=== PATIENT | female | born 1965 | race Caucasian/White ===

== ENCOUNTER 2017-05-28 19:18 | Emergency (ER) | payer SELFPAY ==
[2017-05-28 18:38] VITALS: BP 126/80; PULSE 88; RESP 16; TEMP 36.7; O2SAT 98; BMI 31.3
--- NOTE | 2017-05-28 18:49 | XR_ITS ---
XR chest 2V HISTORY: ITS.REASON: WEAKNESS AND COUGH ORDERING PHYSICIAN: Caterina Menezes MD PATIENT AGE: 51 years COMPARISON: None available FINDINGS: The cardiomediastinal silhouette and pulmonary vascularity are within normal limits. The lungs are clear without infiltrates, suspicious nodules, or pleural effusions. No acute bony abnormalities. IMPRESSION: Negative chest, no acute finding
[2017-05-28 19:03] LABS: Basophils % 0.2 % (0.1-2.0); Eosinophils # 0.1 K/mm3 (0.0-0.4); Eosinophils % 0.4 % (0.1-12.0); Hematocrit 45.6 % (37.0-47.0); Lymphocytes # 0.7 K/mm3 (0.7-4.5); Lymphocytes % 4.4 K/mm3 (10-50); Mean Corpuscular Hemoglobin 31.2 pg (27.0-31.2); Mean Corpuscular Volume 94.5 fl (81-99); Mean Platelet Volume 7.8 fl (7.4-10.4); Monocytes # 0.5 K/mm3 (0.1-1.0); Monocytes % 3.2 % (1.7-9.3); Neutrophils # 15.6 K/mm3 (1.8-7.8); Neutrophils % 91.9 % (37.0-80.0); Platelet Count 306 K/mm3 (142-424); Red Blood Count 4.82 M/mm3 (4.20-5.40); Red Cell Distribution Width 12.8 % (11.5-17.5); White Blood Count 16.9 K/mm3 (4.8-10.8)
[2017-05-28 19:05] LABS: MANUAL DIFFERENTIAL MANUAL DIFFERENTIAL (MANUAL DIFF)
[2017-05-28 19:11] LABS: Alanine Aminotransferase 42 U/L (12-78); Albumin Level 4.7 gm/dL (3.4-5.0); Albumin/Globulin Ratio 1.3 (1.1-1.8); Alkaline Phosphatase 152 U/L (46-116); Anion Gap 18.5 mEq/L (5-15); Aspartate Amino Transferase 26 U/L (15-37); Bilirubin,Total 1.8 mg/dL (0.2-1.0); Blood Urea Nitrogen 19 mg/dL (7-18); Calcium 9.4 mg/dL (8.5-10.1); Carbon Dioxide 20 mmol/L (21.0-32.0); Chloride 105 mmol/L (98-107); Creatinine Clearance Estimated 114 mL/min (0-300); Creatinine,Serum 0.83 mg/dL (0.55-1.02); Estimated Glomerular Filt Rate 72 ml/min (>60); GFR (African American) 87 ML/MIN (>60); Globulin 3.6 gm/dl (1.3-3.2); Glucose 166 mg/dL (74-106); Potassium 4.5 mmoL/L (3.5-5.1); Sodium 139 mmol/L (136-145); Total Protein,Serum 8.3 gm/dL (6.4-8.2)
[2017-05-28 19:29] LABS: Lymphocytes % 4 % (10-50); Monocytes % 7 % (2-9); Neutrophils % 85 % (42-76); Platelet Estimate Normal; RBC Morphology Normal; Total Cells Counted 100
[2017-05-28 19:38] VITALS: BP 129/88
--- NOTE | 2017-05-28 20:10 | HMH.EDNVD ---
ED Disposition Clinical Impression: Flu Disposition: Home, Self-Care Condition on Discharge: Good Instructions: Nausea and Vomiting-Adult Additional Instructions: fluids and see pcp for follow up Prescriptions: Benzonatate [Tessalon Perle 100mg Cap] 100 mg PO TID #30 cap - Critical Care Critical Care Time: No Attestation: On 05/28/17, the high probability of a clinically significant, sudden or life threatening deterioration of the following system(s) required my full and direct attention, intervention and personal management. The time I documented below is in addition to time spent performing reported procedures but includes the following listed in this critical care notation. Medical Decision Making - Medical Records Medical records reviewed: Yes: I reviewed the patient's medical records. Vital Signs: 05/28/17 18:38 05/28/17 19:38 05/28/17 22:52 Temperature 98.1 F 98.4 F Temperature Source Oral Oral Pulse Rate [Right Brachial] 88 79 Respiratory Rate 16 18 Blood Pressure [Right Arm] 126/80 129/88 130/49 Blood Pressure Mean [Right Arm] 95 101 76 Blood Pressure Source [Right Arm] Automatic Cuff Automatic Cuff Automatic Cuff Blood Pressure Position [Right Arm] Supine Sitting Supine 02 Sat by Pulse Oximetry 98 96 Oxygen Delivery Method Room Air Room Air - Lab Data Lab results reviewed: Yes: I reviewed the patient's lab results. Lab Results 05/28/17 18:50: WBC 16.9 H, RBC 4.82, Hgb 15.0, Hct 45.6, MCV 94.5, MCH 31.2, MCHC 33.0, RDW 12.8, Plt Count 306, MPV 7.8, Neut % (Auto) 91.9 H, Lymph % (Auto) 4.4 L, [place] % (Auto) 3.2, Eos % (Auto) 0.4, Baso % (Auto) 0.2, Neut # (Auto) 15.6 H, Lymph # (Auto) 0.7, [place] # (Auto) 0.5, Eos # (Auto) 0.1, Baso # (Auto) 0.0, Total Counted 100, Neutrophils % (Manual) 85 H, Band Neutrophils % 3.0, Lymphocytes % (Manual) 4 L, Monocytes % (Manual) 7, Metamyelocytes % 1.0, Platelet Estimate Normal, RBC Morphology Normal 05/28/17 18:50: Sodium 139, Potassium 4.5, Chloride 105, Carbon Dioxide 20 L, Anion Gap 18.5 H, BUN 19 H, Creatinine 0.83, Estimated Creat Clear 114, Estimated GFR 72, Est GFR ( Amer) 87, Glucose 166 H, Calcium 9.4, Total Bilirubin 1.8 H, AST 26, ALT 42, Alkaline Phosphatase 152 H, Total Protein 8.3 H, Albumin 4.7, Globulin 3.6 H, Albumin/Globulin Ratio 1.3 05/28/17 18:50: Amylase 44, Lipase 85 05/28/17 22:30: Urine Color Yellow, Urine Appearance Clear, Urine pH 6.0, Ur Specific [place] >= 1.030, Urine Protein Negative, Urine Glucose (UA) Negative, Urine Ketones Negative, Urine Blood 1+, Urine Nitrate Negative, Urine Bilirubin Negative, Urine Urobilinogen 0.2, Ur Leukocyte Esterase Negative, Urine RBC 3-5, Urine WBC Occasional, Ur Squamous Epith Cells 3-5, Urine Bacteria 1+, Urine Mucus 2+ Result diagrams: 05/28/17 18:50 05/28/17 18:50 Orders (Tests/Meds): ED MEDICATIONS Discontinued Medications Generic Name Dose Route Start Last Admin Trade Name Freq PRN Reason Stop Dose Admin Famotidine 20 mg 05/28/17 20:24 05/28/17 20:38 Pepcid 20mg/2ml Vial IV 05/28/17 20:25 20 mg ONCE ONE Administration Sodium Chloride 1,000 mls @ 999 mls/hr 05/28/17 19:00 05/28/17 18:59 Sod Chloride 0.9% 1000ml Bag IV 05/28/17 20:00 999 mls/hr .Q1H1M SHANTHI Administration Sodium Chloride 1,000 mls @ 999 mls/hr 05/28/17 20:30 05/28/17 20:24 Sod Chloride 0.9% 1000ml Bag IV 05/28/17 21:30 999 mls/hr .Q1H1M SHANTHI Administration Ketorolac Tromethamine 30 mg 05/28/17 22:12 05/28/17 22:18 Toradol 30mg/Ml Vial IV 05/28/17 22:13 30 mg ONCE ONE Administration Loperamide HCl 4 mg 05/28/17 18:50 05/28/17 18:58 Imodium 2 Mg Capsule PO 05/28/17 18:51 4 mg ONCE ONE Administration Ondansetron HCl 4 mg 05/28/17 20:24 05/28/17 20:38 Zofran 4mg/2ml Vial IV 05/28/17 20:25 4 mg ONCE ONE Administration - Paul Inquiry Pt receiving controlled substance: No Nausea/Vomiting/Diarrhea HPI - General Chief complaint: N
--- NOTE | 2017-05-28 20:15 | ED_ITS ---
ED Disposition Clinical Impression: Flu Disposition: Home, Self-Care Condition on Discharge: Good Instructions: Nausea and Vomiting-Adult Additional Instructions: fluids and see pcp for follow up Prescriptions: Benzonatate [Tessalon Perle 100mg Cap] 100 mg PO TID #30 cap - Critical Care Critical Care Time: No Attestation: On 05/28/17, the high probability of a clinically significant, sudden or life threatening deterioration of the following system(s) required my full and direct attention, intervention and personal management. The time I documented below is in addition to time spent performing reported procedures but includes the following listed in this critical care notation. Medical Decision Making - Medical Records Medical records reviewed: Yes: I reviewed the patient's medical records. Vital Signs: 05/28/17 18:38 05/28/17 19:38 05/28/17 22:52 Temperature 98.1 F 98.4 F Temperature Source Oral Oral Pulse Rate [Right Brachial] 88 79 Respiratory Rate 16 18 Blood Pressure [Right Arm] 126/80 129/88 130/49 Blood Pressure Mean [Right Arm] 95 101 76 Blood Pressure Source [Right Arm] Automatic Cuff Automatic Cuff Automatic Cuff Blood Pressure Position [Right Arm] Supine Sitting Supine 02 Sat by Pulse Oximetry 98 96 Oxygen Delivery Method Room Air Room Air - Lab Data Lab results reviewed: Yes: I reviewed the patient's lab results. Lab Results 05/28/17 18:50: WBC 16.9 H, RBC 4.82, Hgb 15.0, Hct 45.6, MCV 94.5, MCH 31.2, MCHC 33.0, RDW 12.8, Plt Count 306, MPV 7.8, Neut % (Auto) 91.9 H, Lymph % (Auto ) 4.4 L, [place] % (Auto) 3.2, Eos % (Auto) 0.4, Baso % (Auto) 0.2, Neut # (Auto) 15.6 H, Lymph # (Auto) 0.7, [place] # (Auto) 0.5, Eos # (Auto) 0.1, Baso # (Auto) 0.0, Total Counted 100, Neutrophils % (Manual) 85 H, Band Neutrophils % 3.0, Lymphocytes % (Manual) 4 L, Monocytes % (Manual) 7, Metamyelocytes % 1.0, Platelet Estimate Normal, RBC Morphology Normal 05/28/17 18:50: Sodium 139, Potassium 4.5, Chloride 105, Carbon Dioxide 20 L, Anion Gap 18.5 H, BUN 19 H, Creatinine 0.83, Estimated Creat Clear 114, Estimated GFR 72, Est GFR ( Amer) 87, Glucose 166 H, Calcium 9.4, Total Bilirubin 1.8 H, AST 26, ALT 42, Alkaline Phosphatase 152 H, Total Protein 8.3 H , Albumin 4.7, Globulin 3.6 H, Albumin/Globulin Ratio 1.3 05/28/17 18:50: Amylase 44, Lipase 85 05/28/17 22:30: Urine Color Yellow, Urine Appearance Clear, Urine pH 6.0, Ur Specific [place] >= 1.030, Urine Protein Negative, Urine Glucose (UA) Negative, Urine Ketones Negative, Urine Blood 1+, Urine Nitrate Negative, Urine Bilirubin Negative, Urine Urobilinogen 0.2, Ur Leukocyte Esterase Negative, Urine RBC 3-5 , Urine WBC Occasional, Ur Squamous Epith Cells 3-5, Urine Bacteria 1+, Urine Mucus 2+ Result diagrams: 05/28/17 18:50 05/28/17 18:50 Orders (Tests/Meds): ED MEDICATIONS Discontinued Medications Generic Name Dose Route Start Last Admin Trade Name Freq PRN Reason Stop Dose Admin Famotidine 20 mg 05/28/17 20:24 05/28/17 20:38 Pepcid 20mg/2ml Vial IV 05/28/17 20:25 20 mg ONCE ONE Administration Sodium Chloride 1,000 mls @ 999 mls/hr 05/28/17 19:00 05/28/17 18:59 Sod Chloride 0.9% 1000ml Bag IV 05/28/17 20:00 999 mls/hr .Q1H1M SHANTHI Administration Sodium Chloride 1,000 mls @ 999 mls/hr 05/28/17 20:30 05/28/17 20:24 Sod Chloride 0.9% 1000ml Bag IV 05/28/17 21:30 999 mls/hr .Q1H1M SHANTHI
[2017-05-28 21:57] LABS: Lipase 85 u/L (73-393)
[2017-05-28 22:01] LABS: Amylase 44 U/L (25-125)
[2017-05-28 22:36] LABS: Microscopic, Urine URINE MICROSCOPIC (MICROSCOPIC)
[2017-05-28 22:37] LABS: Appearance,Urine CLEAR (Clear); Bilirubin,Urine Negative (Negative); Blood, Urine 1+ (Negative); Color,Urine YELLOW (Yellow); Glucose,Urine (UA) Negative (Negative); Ketones,Urine Negative (Negative); Leukocyte Esterase,Urine Negative (Negative); Nitrate,Urine Negative (Negative); Protein,Urine Negative (Negative); Specific Gravity, Urine >= 1.030 (1.005-1.030); Urobilinogen,Urine 0.2 EU/dl (0.2)
[2017-05-28 22:52] VITALS: BP 130/49; PULSE 79; RESP 18; TEMP 36.9; O2SAT 96
[2017-05-28 23:02] LABS: Bacteria,Urine 1+ /lpf; Mucus,Urine 2+ /lpf; WBC,Urine Occasional #/hpf (0-3)
== END 2017-05-28 23:44 | disposition home or self-care (01) ==
PROVIDERS: Emergency Medicine; Emergency Provider Emergency Medicine
DX: J10.1 Influenza due to other identified influenza virus with other respiratory manifestations (principal); F17.210 Nicotine dependence, cigarettes, uncomplicated
CPT/HCPCS: 71046; 80053; 81001; 82150; 83690; 85007; 85025; 96365; 96366; 96375; 99284; J2405

== ENCOUNTER → 2018-12-07 14:13 | Outpatient (CLI) | payer BC, SELFPAY ==
--- NOTE | 2018-12-07 14:16 | XR_ITS ---
XR knee RT 3V HISTORY: Pain following injury ITS.REASON: RT KNEE INJURY ORDERING PHYSICIAN: Susan Trujillo APRN PATIENT AGE: 53 years COMPARISON: None FINDINGS: Normal alignment. There is a faint density just superior to the medial tibial spine which could be due to a loose body or an avulsion fracture. This measures approximately 3 mm. No other significant anomalies. IMPRESSION: Small avulsion injury versus loose body along the medial tibial spine otherwise negative
== END ==
PROVIDERS: PCP Nurse Practitioner Family; Visit Provider Nurse Practitioner Family
DX: S89.91XA Unspecified injury of right lower leg, initial encounter (principal)
CPT/HCPCS: 73562

== ENCOUNTER → 2019-04-13 11:13 | Outpatient (CLI) | payer BC, SELFPAY ==
--- NOTE | 2019-04-13 11:19 | CA_ITS ---
APPROVED REPORT Right Lower Extremity Venous Study for DVT. Utilities Manager: BLADIMIR Indications Lower Extremity Pain: DVT of Lower Extremity: Right knee pain Risk Factors Obesity Past History DVT : Findings No evidence of DVT or superficial thrombophlebitis in the veins scanned of the right lower extremity. Susan Trujillo office called report Conclusion No evidence of DVT or superficial thrombophlebitis in the veins scanned of the right lower extremity. Electronically signed by : Derrek Sullivan MD 04/16/2019 16:58:09
[2019-04-13 12:32] LABS: Basophils % 0.6 % (0.1-2.0); Eosinophils # 0.1 K/mm3 (0.0-0.4); Eosinophils % 1.6 % (0.1-12.0); Hematocrit 40.7 % (37.0-47.0); Hemoglobin 13.4 g/dL (12.2-16.2); Lymphocytes # 2.6 K/mm3 (0.7-4.5); Lymphocytes % 38.3 % (10-50); Mean Corpuscular HGB Conc 33.1 g/dL (31.8-35.4); Mean Corpuscular Hemoglobin 30.7 pg (27.0-31.2); Mean Corpuscular Volume 92.8 fl (81-99); Mean Platelet Volume 7.8 fl (7.4-10.4); Monocytes # 0.5 K/mm3 (0.1-1.0); Monocytes % 7.2 % (1.7-9.3); Neutrophils # 3.6 K/mm3 (1.8-7.8); Neutrophils % 52.3 % (37.0-80.0); Platelet Count 351 K/mm3 (142-424); Red Blood Count 4.38 M/mm3 (4.20-5.40); White Blood Count 6.8 K/mm3 (4.8-10.8)
[2019-04-13 16:17] LABS: Alanine Aminotransferase 33 U/L (12-78); Albumin/Globulin Ratio 1.3 (1.1-1.8); Alkaline Phosphatase 159 U/L (46-116); Anion Gap 17.4 mEq/L (5-15); Aspartate Amino Transferase 22 U/L (15-37); Bilirubin,Total 1.1 mg/dL (0.2-1.0); Blood Urea Nitrogen 11 mg/dL (7-18); Calcium 9.3 mg/dL (8.5-10.1); Carbon Dioxide 25 mmol/L (21.0-32.0); Chloride 103 mmol/L (98-107); Chol/HDL Ratio 6.3 (1-3.5); Cholesterol 263 mg/dL (140-200); Estimated Glomerular Filt Rate 87 ml/min (>60); Free T4 (Free Thyroxine) 0.54 ng/dl (0.76-1.46); GFR (African American) 106 ML/MIN (>60); Globulin 3.2 gm/dl (1.3-3.2); Glucose 91 mg/dL (74-106); HDL Cholesterol 42 mg/dL (29-89); LDL Cholesterol 187 mg/dL (0-130); Potassium 4.4 mmoL/L (3.5-5.1); Sodium 141 mmol/L (136-145); Thyroid Stimulating Hormone 2.94 uIU/ml (0.358-3.740); Total Protein,Serum 7.2 gm/dL (6.4-8.2); Triglycerides 169 mg/dL (30-200); VLDL Cholesterol 34 mg/dL (0-40)
[2019-04-14 13:19] LABS: Vitamin B12 >2000 pg/mL (232-1245)
== END ==
PROVIDERS: PCP Nurse Practitioner Family; Visit Provider Nurse Practitioner Family
DX: M25.561 Pain in right knee (principal); Z98.890 Other specified postprocedural states; E78.3 Hyperchylomicronemia; M79.89 Other specified soft tissue disorders; E53.8 Deficiency of other specified B group vitamins; E03.9 Hypothyroidism, unspecified
CPT/HCPCS: 36415; 80053; 80061; 82607; 84439; 84443; 85025; 93971

== ENCOUNTER → 2019-04-23 06:43 | Outpatient (CLI) | payer BC, SELFPAY ==
--- NOTE | 2019-04-23 08:00 | US_ITS ---
PROCEDURE: US LIVER CLINICAL INDICATION: ELEVATED LIVER ENZYMES COMPARISON: No exams were available for comparison FINDINGS: The echogenicity of the liver is only mildly increased without enlargement in there is no focal liver lesion. Common bile duct is normal measuring 5.2 millimeters. There is normal directional flow in the portal vein. Right kidney appears normal. There is no ascites. Visualized portions of the IVC and pancreas appear normal. Gallbladder is not visualized. IMPRESSION: Possible mild hepatic steatosis. Dictated by: Luciano Chauhan 04/23/2019 09:35 Electronically signed by Luciano Chauhan in [place] 04/23/2019 09:35
== END ==
PROVIDERS: PCP Nurse Practitioner Family; Visit Provider Nurse Practitioner Family
DX: R74.8 Abnormal levels of other serum enzymes (principal)
CPT/HCPCS: 76705

== ENCOUNTER → 2019-11-16 07:19 | Outpatient (CLI) | payer BC, MEDICAID, SELFPAY ==
--- NOTE | 2019-11-16 07:24 | US_ITS ---
PROCEDURE: US ABDOMEN LIMITED CLINICAL INDICATION: N/V,ALTERED BOWEL FUNCTION,ABN LIVER FUNCTION STUDY COMPARISON: No exams were available for comparison FINDINGS: PANCREAS: Unremarkable. No obvious mass or abnormal fluid collection. No ductal dilatation LIVER: No focal liver lesions demonstrated. Homogeneous echogenicity. No intrahepatic biliary ductal dilatation evident. There is appropriate direction of blood flow within a non dilated portal vein. Are some areas of slight increased echogenicity of the liver suggesting hepatic steatosis. RIGHT KIDNEY: Unremarkable. Normal size and echogenicity. No hydronephrosis GALLBLADDER: Prior cholecystectomy. Common bile duct is normal at 3 mm. IMPRESSION: Prior cholecystectomy with suspected mild hepatic steatosis Dictated by: Derrek Sullivan MD 11/16/2019 11:08 Electronically signed by eDrrek Sullivan MD in [place] 11/16/2019 11:08
[2019-11-16 09:38] LABS: Basophils # 0.1 K/mm3 (0-0.2); Basophils % 0.6 % (0.1-2.0); Eosinophils # 0.2 K/mm3 (0.0-0.4); Eosinophils % 2.1 % (0.1-12.0); Hematocrit 44.4 % (37.0-47.0); Hemoglobin 15.2 g/dL (12.2-16.2); Lymphocytes # 3.4 K/mm3 (0.7-4.5); Mean Corpuscular HGB Conc 34.2 g/dL (31.8-35.4); Mean Corpuscular Hemoglobin 32.9 pg (27.0-31.2); Mean Corpuscular Volume 96.3 fl (81-99); Mean Platelet Volume 7.4 fl (7.4-10.4); Monocytes # 0.6 K/mm3 (0.1-1.0); Monocytes % 6.2 % (1.7-9.3); Neutrophils # 5.2 K/mm3 (1.8-7.8); Neutrophils % 55.1 % (37.0-80.0); Platelet Count 339 K/mm3 (142-424); Red Blood Count 4.61 M/mm3 (4.20-5.40); Red Cell Distribution Width 13.1 % (11.5-17.5); White Blood Count 9.5 K/mm3 (4.8-10.8)
[2019-11-16 09:54] LABS: INR 0.97 (0.9-1.1)
[2019-11-16 10:30] LABS: Alanine Aminotransferase 22 U/L (12-78); Albumin Level 4.6 g/dl (3.5-5.0); Albumin/Globulin Ratio 1.8 (1.1-1.8); Alkaline Phosphatase 139 U/L (38-126); Anion Gap 12.5 mEq/L (5-15); Aspartate Amino Transferase 29 U/L (14-36); Bilirubin,Total 1.5 mg/dl (0.2-1.3); Blood Urea Nitrogen 12 mg/dl (7-17); Carbon Dioxide 32 mmol/L (22.0-30.0); Chloride 102 mmol/L (98-107); Estimated Glomerular Filt Rate 104 ml/min (>60); GFR (African American) 126 ML/MIN (>60); Globulin 2.6 g/dL (1.3-3.2); Glucose 91 mg/dl (74-100); Iron 136 ug/dL (37-170); Potassium 5.5 mmoL/L (3.5-5.1); Sodium 141 mmol/L (136-145); Total Protein,Serum 7.2 g/dl (6.3-8.2)
[2019-11-16 11:00] LABS: Total Iron Binding Capacity 430 ug/dL (265-497)
[2019-11-16 11:24] LABS: Ferritin 8.74 ng/ml (11.1-264)
[2019-11-17 11:29] LABS: Hep A Ab, IgM Negative (Negative); Hepatitis B Core Antibody IgM Negative (Negative); Hepatitis B Surface Antigen Negative (Negative)
[2019-11-17 13:32] LABS: Hepatitis C Antibody <0.1 s/co ratio (0.0-0.9)
[2019-11-18 06:11] LABS: ALT (SGPT) P5P 21 IU/L (0-40); AST (SGOT) P5P 25 IU/L (0-40); Alpha 2-Macroglobulins, Qn 166 mg/dL (110-276); Apolipoprotein A-1 142 mg/dL (116-209); Bilirubin, Total 1.2 mg/dL (0.0-1.2); Cholesterol, Total 189 mg/dL (100-199); Fibrosis Score 0.21 (0.00-0.21); GGT 11 IU/L (0-60); Glucose 87 mg/dL (65-99); Haptoglobin 95 mg/dL (33-346); Triglycerides 232 mg/dL (0-149)
[2019-11-18 09:39] LABS: Actin (Smooth Muscle) Antibody 4 Units (0-19); Angiotensin Converting Enzyme 41 U/L (14-82); Deamidated Gliadin Abs, IgA 2 units (0-19); Deamidated Gliadin Abs, IgG 2 units (0-19); Endomysial IgA Antibody Negative (Negative); Liver-Kidney Microsomal Ab 1.2 Units (0.0-20.0); Mitochondrial (M2) Antibody <20.0 Units (0.0-20.0); Tissue Transglutaminase IgA Ab <2 U/mL (0-3); Tissue Transglutaminase IgG Ab <2 U/mL (0-5)
[2019-11-18 12:32] LABS: Reticulin IgA Antibody Negative titer (Neg:<1:2.5)
[2019-11-22 11:51] LABS: Alpha-1-Antitrypsin 116 mg/dL (101-187)
[2019-12-29 12:28] LABS: Ceruloplasmin 23.4; Immunoglobulin A, Qn 132; Immunoglobulin G, Qn 879; Immunoglobulin M, Qn 71
[2019-12-29 12:29] LABS: Antinuclear Antibodies (ANA) NEGATIVE
== END ==
PROVIDERS: PCP Nurse Practitioner Family; Visit Provider Nurse Practitioner Family
DX: R11.2 Nausea with vomiting, unspecified (principal); R19.4 Change in bowel habit; R94.5 Abnormal results of liver function studies
CPT/HCPCS: 36415; 76705; 80053; 80074; 81256; 82103; 82104; 82164; 82390; 82728; 82784; 83516; 83540; 83550; 85025; 85610; 86038; 86255; 86256; 86376

== ENCOUNTER 2019-12-26 20:37 | Emergency (ER) | payer BC, MEDICAID, SELFPAY ==
[2019-12-26 20:37] VITALS: BP 143/97; PULSE 85; RESP 17; TEMP 36.8; O2SAT 98; BMI 30.7
--- NOTE | 2019-12-26 20:54 | CT_ITS ---
PROCEDURE: CT CERVICAL SPINE WO CON CLINICAL INDICATION: INJURY Neck injury with pain, contusion/abrasion or hematoma, cervical sprain/strain the COMPARISON: No exams were available for comparison TECHNIQUE: Axial images obtained with sagittal and coronal reformats. All CT scans at the facility use one or more dose reduction, viz: automated exposure control, ma/kV adjustment per patient size (including targeted exams where dose is matched to indication, i.e. head), or iterative reconstruction technique. Axial spiral CT scanning performed of the cervical spine beginning at the base of the skull and continuing to the upper T-spine. 3-D multiplanar reconstruction with 3-D manipulation of volumetric data set in image rendering was completed by the radiologist and/or technologist with the supervision of the radiologist on independent workstation. FINDINGS: There is straightening/reversal of the normal lordosis which may be due to patient positioning or muscle spasm. No fracture or dislocation. C2-C3: Unremarkable. C3-C4: Degenerate disc disease with mild endplate ridging and mild bilateral lateral recess narrowing greater on the right. C4-C5: Mild degenerative disc disease with 2 mm anterolisthesis of C4 C5-C6: Degenerative disc disease with borderline narrowing of the canal with endplate hypertrophic change and bilateral foraminal narrowing left greater than right. C6-C7: Degenerate disc disease with endplate spurring and minimal bulging disc. C7-T1: Unremarkable. Scattered small nodes are present in the neck. Lung apices are clear IMPRESSION: 1. No acute fracture. 2. Reversal of lordosis with multilevel cervical spondylosis. Please see above for detailed description at each level. There is narrowing of the canal at C5-C6 Dictated by: Derrek Sullivan MD 12/27/2019 05:26 Derrek Sullivan MD in [place] 12/27/2019 05:26
--- NOTE | 2019-12-26 20:54 | CT_ITS ---
PROCEDURE: CT HEAD/BRAIN WO CON CLINICAL INDICATION: INJURY Head injury with headache/pain, contusion, abrasion or hematoma, possible loss of consciousness, amnesia of the event COMPARISON: No exams were available for comparison TECHNIQUE: Axial images obtained. All CT scans at the facility use one or more dose reduction, viz: automated exposure control, ma/kV adjustment per patient size (including targeted exams where dose is matched to indication, i.e. head), or iterative reconstruction technique. FINDINGS: No midline shift, mass effect, intracranial hemorrhage, hydrocephalus, or extra-axial fluid collection is evident. The calvarium has an unremarkable appearance. No mastoid effusion. No sinus air-fluid level. IMPRESSION: No acute intracranial finding Dictated by: Derrek Sullivan MD 12/27/2019 05:22 Derrek Sullivan MD in [place] 12/27/2019 05:22
--- NOTE | 2019-12-26 20:56 | HMH.EDFALL ---
ED Disposition Clinical Impression: Neck pain Disposition: Home, Self-Care Condition on Discharge: Good Instructions: How to Prevent Falls Additional Instructions: It appears you have suffered a neck strain with a possible herniated disc from your fall 2 days ago. Please continue taking [id number] nonsteroidal anti-inflammatory drugs always with food and use ice on the affected area. Early mobilization has been shown to be done for recovery in regards to possible herniated disc. If continued symptoms or any new neurologic symptoms, weakness, or other concerns please immediately report back to our ER. Otherwise please follow-up with your primary care doctor within several days for a recheck. Referrals: Susan Trujillo APRN [Primary Care Provider] - - Critical Care Critical Care Time: No Attestation: On 12/26/19, the high probability of a clinically significant, sudden or life threatening deterioration of the following system(s) required my full and direct attention, intervention and personal management. The time I documented below is in addition to time spent performing reported procedures but includes the following listed in this critical care notation. Medical Decision Making - Paul Inquiry Pt receiving controlled substance: No Vital Signs: 12/26/19 20:37 12/26/19 21:41 Temperature 98.2 F 98.2 F Temperature Source Oral Pulse Rate 80 Pulse Rate [Right] 85 Respiratory Rate 17 18 Blood Pressure 130/79 Blood Pressure [Right Arm] 143/97 H Blood Pressure Mean [Right Arm] 112 Blood Pressure Source Automatic Cuff Blood Pressure Position Sitting 02 Sat by Pulse Oximetry 98 Orders (Tests/Meds): ORDERS Category Date Time Status CT cervical spine wo con Stat Cat Scan 12/26/19 20:[address] head/brain wo con Stat Cat Scan 12/26/19 20:54 Taken - CT Data CT Scan: C-Spine (No acute fracture; DJD noted) Time Received: 21:[address] Reviewed: Yes: I have reviewed the patient's CT results Medical Decision Narrative: Patient presents the emergency department after mechanical fall 2 days ago with concern for neck fracture. Differential diagnosis does include cervical spine fracture versus subluxation versus muscular/soft tissue injury versus spinal cord injury. Patient without bilateral upper extremity weakness or other neurologic findings consistent with spinal cord injury. My suspicion is rather low. CT scan will be obtained to ensure no cervical spine fracture/subluxation. Cervical spine CT negative for acute fracture. She may have slightly herniated disc but conservative treatment is the appropriate management with continued NSAID treatment with food and ice on the affected area. Patient agrees and is relieved that she does not have a cervical spine fracture which is what she was concerned about. She will follow-up with her primary care doctor for recheck within several days and return to our emergency department if any upper extremity paresthesias, weakness, worsening pain, or other new symptoms prior to that time. Fall HPI - General Chief Complaint: Fall Stated Complaint: AO, fell 3 days ago, spot on neck Time Seen by Provider: 12/26/19 21:20 Mode of Arrival: Ambulatory Limitations: No Limitations Description of Symptoms (Recalled from ER Triage Doc. by RN): PT STATES 2 DAYS AGO SHE WAS WORKING ON HER HOUSE AND FELL AND thinks she has whiplash because of R sided neck pain and wants to make sure she didn't fracture her cervical spine - History of Present Illness HPI Narrative: Patient is a 54-year-old female with history of GERD presenting to the neck pain. Patient fell 2 days ago. Was mechanical fall. She did not lose consciousness or hit her head but her neck contorted in a strange manner. Has had right sided neck pain ever since that is somewhat worse with movement. The pain is dull, constant. She does take ibuprofen which has helped with the pain. She is slightly concerned t
[2019-12-26 21:41] VITALS: BP 130/79; PULSE 80; RESP 18; TEMP 36.8
== END 2019-12-26 21:42 | disposition home or self-care (01) ==
PROVIDERS: Emergency Provider Emergency Medicine; PCP Nurse Practitioner Family
DX: M54.2 Cervicalgia (principal); W01.0XXA Fall on same level from slipping, tripping and stumbling without subsequent striking against object, initial encounter; Y92.019 Unspecified place in single-family (private) house as the place of occurrence of the external cause; K21.9 Gastro-esophageal reflux disease without esophagitis; F17.210 Nicotine dependence, cigarettes, uncomplicated
CPT/HCPCS: 70450; 72125; 99282

== ENCOUNTER → 2020-09-20 08:36 | Outpatient (CLI) | payer MEDICAID, SELFPAY ==
--- NOTE | 2020-09-20 08:42 | MM_ITS ---
PROCEDURE INFORMATION: Exam: MG Screening 3D Mammography Exam date and time: 09/20/2020 8:42 AM Age: 55 years old Clinical indication: Encounter for screening mammogram for malignant neoplasm of breast TECHNIQUE: Imaging protocol: Screening tomosynthesis and 2D mammography including computer-aided detection (CAD) when performed. COMPARISON: [facility] MAMMO DIAG DIGITL BILAT 01/27/2014 3:30 PM FINDINGS: MAMMOGRAPHY: Breast composition: The breast tissue is composed of scattered areas of fibroglandular density. Mass: None. Architectural distortion: None. Calcifications: No suspicious calcifications. Asymmetric density: None. Skin thickening: None. Axillary adenopathy: None. IMPRESSION: No mammographic evidence of malignancy. Annual screening is recommended unless otherwise clinically indicated. ASSESSMENT: BI-RADS Category 1: Negative
--- NOTE | 2020-09-20 08:44 | XR_ITS ---
PROCEDURE: XR MULTIPLE SPINE 6+V CLINICAL INDICATION: PAIN DUE TO TRAUMA COMPARISON: CR CXR2 XR chest AP from 07/22/[address] chest wo con from 07/22/2018 FINDINGS: No fracture or dislocation. No lytic or blastic change. There is normal mineralization. There are minimal degenerative changes in the midthoracic spine with minimal endplate osteophytes and slight decrease in the disc spaces. Other findings:None. IMPRESSION: No acute finding. Minimal degenerative change Dictated by: Derrek Sullivan MD 09/20/2020 12:35 Derrek Sullivan MD in [place] 09/20/2020 12:35
== END ==
PROVIDERS: PCP Nurse Practitioner Family; Visit Provider Nurse Practitioner Family
DX: Z12.31 Encounter for screening mammogram for malignant neoplasm of breast (principal); G89.11 Acute pain due to trauma
CPT/HCPCS: 72084; 77063; 77067

== ENCOUNTER → 2020-10-17 09:27 | Outpatient (CLI) | payer MEDICAID, SELFPAY ==
--- NOTE | 2020-10-17 09:42 | MR_ITS ---
PROCEDURE: MR LUMBAR SPINE WO/W CON CLINICAL INDICATION: SCIATICA, RIGHT SIDE, LBP COMPARISON: CR XR MULTIPLE SPINE 6+V from 09/20/2020 TECHNIQUE: Standard multiplanar multiecho sequences are performed without and with contrast. 3-D MIP and myelographic images are also rendered and reviewed FINDINGS: The spinal cord ends at the L1 level. L1-L2: Mild degenerative disc disease. There is a small broad-based left paracentral disc protrusion with mild left lateral recess narrowing. Mild degenerative disc disease at that level. L2-L3: Mild degenerative disc disease. There is mild facet and ligamentum hypertrophy. L3-L4: Mild bulging disc. There is 3 mm retrolisthesis of L3 along with facet and ligamentum hypertrophic change causing mild bilateral foraminal narrowing. Mild degenerative disc disease L4-5: Mild concentric bulging disc. 3 mm retrolisthesis of L4 on L5 with facet and ligamentum hypertrophic change. There is moderate to severe right foraminal narrowing and mild left foraminal narrowing. L5-S1: Degenerative disc disease with mild facet hypertrophic change and minimal bulging disc with moderate to severe bilateral foraminal narrowing No extruded herniated disc is evident. There is mild reversal of the lumbar lordosis at the L1-L2 level. IMPRESSION: Lumbar spondylosis with degenerative changes. Please see above for detailed description at each level. Small left paracentral disc protrusion with mild left lateral recess narrowing at L1-L2. Dictated by: Derrek Sullivan MD 10/19/2020 12:33 Derrek Sullivan MD in [place] 10/19/2020 12:33
[2020-10-17 10:25] LABS: Blood Urea Nitrogen 15 mg/dl (7-17); Estimated Glomerular Filt Rate 87 ml/min (>60); GFR (African American) 105 ML/MIN (>60)
== END ==
PROVIDERS: PCP Nurse Practitioner Family; Visit Provider Nurse Practitioner Family
DX: G89.11 Acute pain due to trauma (principal); M54.31 Sciatica, right side; M54.5 Low back pain
CPT/HCPCS: 36415; 72158; 76376; 82565; 84520; A9576

== ENCOUNTER → 2021-07-23 14:49 | Outpatient (CLI) | payer MEDICAID, SELFPAY ==
--- NOTE | 2021-07-23 14:55 | US_ITS ---
FINAL REPORT CLINICAL HISTORY: right sided PELVIC PAIN FINDINGS: Transvaginal sonographic images of the pelvis were obtained. The uterus measures 4.6 x 4.5 x 3.0. The endometrium measures 4 mm, which is at the upper limit of normal. There are 3 uterine masses consistent with fibroids measuring 1.8 cm, 1.4 cm and 1.6 cm in maximum dimension. The right ovary measures 3.8 x 2.7 x 3.6 cm in length and left ovary measures 3.3 x 2.5 x 1.3 cm in length. The right ovary demonstrates a septated cystic mass or several adjacent cystic masses measuring 2.9 x 2.8 cm. Neoplasm is not excluded. IMPRESSION: Right septated cystic mass or several adjacent cystic masses. Neoplasm is not excluded. Fibroid uterus. Endometrium at the upper limits of normal in thickness. Reviewed, Interpreted and Dictated by Nick Hansen III, MD Transcribed by Ruma Reynolds Authenticated by Nick Hansen III, MD on 07/23/2021 04:41:11 PM [facility]
--- NOTE | 2021-07-23 14:59 | MM_ITS ---
PROCEDURE INFORMATION: Exam: MG Bilateral Screening 3D Mammography Exam date and time: 07/23/2021 3:16 PM Age: 56 years old Clinical indication: Encounter for screening mammogram for malignant neoplasm of breast. Her maternal aunt had breast cancer. TECHNIQUE: Imaging protocol: Bilateral Screening tomosynthesis and 2D mammography including computer-aided detection (CAD) when performed. COMPARISON: MG MM DIG SCREENING MAMM BI W/CAD 09/20/2020 8:51 AM FINDINGS: MAMMOGRAPHY: Breast composition: The breast tissue is composed of scattered areas of fibroglandular density. Mass: No suspicious mass. Architectural distortion: None. Calcifications: No suspicious calcifications. Asymmetric density: None. Skin thickening: None. Axillary adenopathy: None. IMPRESSION: No mammographic evidence of malignancy. Annual screening is recommended unless otherwise clinically indicated. ASSESSMENT: BI-RADS Category 1: Negative
== END ==
PROVIDERS: PCP Nurse Practitioner Family; Visit Provider Nurse Practitioner Family
DX: Z12.31 Encounter for screening mammogram for malignant neoplasm of breast (principal); R10.2 Pelvic and perineal pain
CPT/HCPCS: 76830; 77063; 77067

== ENCOUNTER → 2021-07-30 09:41 | Outpatient (CLI) | payer MEDICAID, SELFPAY | PROVIDERS: PCP Nurse Practitioner Family; Visit Provider Internal Medicine | DX: Z01.812 Encounter for preprocedural laboratory examination (principal); Z11.52 Encounter for screening for COVID-19; Z12.11 Encounter for screening for malignant neoplasm of colon | CPT/HCPCS: C9803; U0003; U0005 ==

== ENCOUNTER 2021-08-01 10:48 | Day surgery (SDC) | payer MEDICAID, SELFPAY ==
[2021-07-26 10:42] VITALS: BMI 34.2
[2021-08-01 11:40] VITALS: BP 130/88; PULSE 68; RESP 16; TEMP 36.9; O2SAT 96
[2021-08-01 12:25] VITALS: O2SAT 96
--- NOTE | 2021-08-01 12:36 | HMH.ANESCL ---
[facility] Anesthesia Checklist - Patient Identification Patient Identification: Arm Band, Verbal (Name & ) - Structural Data Admitted From: Home Planned Operative Procedure/s: Colonoscopy Consent for Planned Operative Procedure(s) Verified: Yes Verified Documents: Surgical Consent - Chart Verification Results Verified: None - Airway Assessment C-Spine Mobility Assessed: Yes TMJ Mobility Assessed: Yes Dentition: Good Dentition - Neurological Assessment Level of Consciousness: Awake, Alert, Appropriate - Anesthesia Plan Anesthesia Risk discussed: Yes ASA Class: III Anesthesia Type: MAC [facility] History I have reviewed the patient's past medical history: Yes Medical History: Denies:: Cancer, Diabetes Mellitus Type 1, Diabetes Mellitus Type 2, Internal Pacemaker, MRSA, Seizures *Have you ever received a pneumonia vaccine?: No *Have you received a flu vaccine this season?: Yes Anesthesia experience/problems:: no issues Other Surgeries: No: Pacemaker Amputation: No Fractures: No - *Social History Last grade of school completed: Advanced degree Smoking Status: Never smoker Tobacco Type: cigarettes # Packs/Day (cigarettes): 0 Alcohol Intake: current Alcohol Intake Frequency:: holidays/special occasions only Substance Use Type: denies use *Occupational Status:: employed Housing: house Household Members: family *Travel in the last 8 weeks: None Family Hx:: Other
--- NOTE | 2021-08-01 12:54 | [facility].SCOPE ---
- Procedure: Date: 08/01/21 Patient Date of :: 1965 Procedure Performed:: Colonoscopy Indications:: Screening colonoscopy Performing Provider:: Nishant Liang MD Referring Provider:: Sarah Trujillo APRN Sedation:: See RN notes Procedure:: After placing the patient in the left lateral decubitus position, the colonoscopy was gently inserted into the rectum and under direct visualization advanced to the cecum which was identified by transillumination in the right lower quadrant, identification of the ileocecal valve, appendiceal orifice, and cecal strap. Color, texture, mucosa, and anatomy of the colon were carefully examined with the scope. Findings:: Anal canal: normal Rectum: Internal hemorrhoids Sigmoid colon: Fair bowel preparation. Diverticulosis Descending colon: Fair bowel preparation. Diverticulosis Splenic flexure: normal Transverse colon: normal without polyps or inflammatory changes Hepatic flexure: normal Ascending colon: normal without polyps or inflammatory changes Cecum: normal Terminal ileum: not visualized Recommendations:: Repeat colonoscopy in 3 years due to fair bowel preparation in distal colon Complications:: none Estimated blood obtained (mL): 0
[2021-08-01 12:55] VITALS: BP 110/57; PULSE 71; RESP 18; TEMP 36.3; O2SAT 100
[2021-08-01 13:05] VITALS: BP 139/81; PULSE 81; RESP 18; O2SAT 100
[2021-08-01 13:15] VITALS: BP 138/71; PULSE 74; RESP 18; O2SAT 99
[2021-08-01 13:25] VITALS: BP 129/80; PULSE 62; RESP 18; TEMP 36.2; O2SAT 97
== END 2021-08-01 13:25 | disposition home or self-care (01) ==
LOC: OUTP 10:49
PROVIDERS: PCP Nurse Practitioner Family; Visit Provider Internal Medicine
PROC: 0DJD8ZZ Inspection of Lower Intestinal Tract, Via Natural or Artificial Opening Endoscopic (ICD-10-PCS; CPT 45378; principal; 2021-08-01 12:00)
DX: Z12.11 Encounter for screening for malignant neoplasm of colon (principal); K64.9 Unspecified hemorrhoids; K57.30 Diverticulosis of large intestine without perforation or abscess without bleeding
CPT/HCPCS: 45378

== ENCOUNTER 2022-08-13 14:48 | Emergency (ER) | payer BC, MEDICAID, SELFPAY ==
[2022-08-13] VITALS (8 sets, daily range): BP systolic 118–141; BP diastolic 64–93; PULSE 69–96; RESP 14–18; TEMP 36.6; O2SAT 96–99; BMI 35.9
--- NOTE | 2022-08-13 14:49 | ECG_ITS ---
APPROVED REPORT Exam: Resting ECG HR:91 bpm ECG Measurements Heart Rate 91 AXES NJ 136 P 61 QRSd 103 QRS 63 QT 368 T 69 QTc 417 Conclusion SINUS RHYTHM WITH OCCASIONAL VENTRICULAR PREMATURE COMPLEXES BORDERLINE ECG UNCONFIRMED REPORT Electronically signed by : Avi Taylor MD 08/16/2022 14:33:19
--- NOTE | 2022-08-13 15:00 | XR_ITS ---
FINAL REPORT CLINICAL HISTORY: cp COMPARISON: 07/21/2019 FINDINGS: Two views of the chest were obtained. The heart size and pulmonary vascularity are within normal limits. The mediastinum is normal. No acute pulmonary abnormality is identified. There is no pneumothorax. The bony thorax is intact. IMPRESSION: No active cardiopulmonary disease. Reviewed, Interpreted and Dictated by Nick Hansen III, MD Transcribed by Alicia Ortega Authenticated and [facility]
--- NOTE | 2022-08-13 15:01 | [facility].EDCP ---
Discharge Plan Disposition Patient Disposition: Home, Self-Care Condition: Good Prescriptions Prescriptions: No Action atorvastatin 20 MG Tablet 20 mg PO DAILY furosemide 20 MG Tablet 20 mg PO DAILY Label Comments: TAKE 1/2 TABLET EVERY OTHER DAY levothyroxine 112 MCG Tablet 112 mg PO DAILY Label Comments: TAKE 1 TAB BY MOUTH DAILY. duloxetine 60 MG Capsule.Dr 60 mg PO DAILY Label Comments: TAKE ONE CAPSULE BY MOUTH EVERY DAY ferrous sulfate 325 MG tablet 325 mg PO DIRECTED Rx Instructions: MWF nabumetone 750 MG tablet 750 mg PO 20 ranitidine HCl 150 MG tablet 150 mg PO BID Referrals Follow up/Referrals: Adeola Ordonez APRN [Primary Care Provider] - See instructions Mal Wood MD [Staff Physician] - See instructions Activity Restrictions/Add. Instructions Additional Instructions/Restrictions: Your EKG and cardiac enzymes are negative. Please follow-up with Dr. Wood as an outpatient. Take an baby aspirin a day to protect your heart. Return to ER if symptoms worsen Clinical Impressions Clinical Impression: Chest pain Instructions Patient Instructions: DI for Atypical Chest Pain Discharge ED Provider: Lily Rodriguez Chest Pain HPI General Chief Complaint: Chest Pain Stated Complaint: chest pain Time Seen by Provider: 08/13/22 14:54 Mode of Arrival: Ambulatory Source of Information: Patient Limitations: No Limitations Description of Symptoms (Recalled from ER Triage Doc. by RN): pt to ED with mild left anterior chest pain x 2 days that radiated to her left shoulder. pt stated she was seen at her PCP who did an EKG and stated it was abnormal and that she needed further evaluation at the ED. pt reports her pain a 4 at this time History of Present Illness HPI narrative: Patient is a 57-year-old female who was sent over by her primary care doctor for substernal chest pressure. Patient is complaining substernal chest pressure radiating to her left jaw and to her straight to her back. She said it comes and goes. Patient stated that the pain last for 10 minutes. Right now the pain is 1 out of 10 it has gotten high as high as 6 out of 10. Does make her short of breath, diaphoretic, and nauseated. She does have hypertension, hyperlipidemia, family history and former smoker for 30 years but no coronary disease for herself, no diabetes. Patient states that the chest pain comes on randomly even at rest. Patient does stated that it does get worse with activity and exertion complaint: chest pain indicative of cardiac Onset (ago): day(s) Duration: intermittent Activity at onset: during rest Pain location: substernal Severity: mild Severity scale (1-10): 1 Quality: tightness, aching and dull Pain radiation: LUE Relieving factors: nothing Exacerbating factors: nothing Associated symptoms: nausea, diaphoresis and dyspnea Treatments prior to or on arrival for Cardiac Chest Pain: none Related Data Home Medications Medication Instructions Recorded Confirmed atorvastatin 20 mg tablet 20 mg PO DAILY High cholesterol 05/28/17 08/01/21 duloxetine 60 mg capsule,delayed 60 mg PO DAILY Supplement 05/28/17 08/01/21 release furosemide 20 mg tablet 20 mg PO DAILY Supplement 05/28/17 08/01/21 levothyroxine 112 mcg tablet 112 mg PO DAILY Supplement 05/28/17 08/01/21 ranitidine HCl 150 mg tablet 150 mg PO BID GERD 07/21/19 08/01/21 ferrous sulfate 325 mg (65 mg 325 mg PO DIRECTED Supplement 07/26/21 08/01/21 iron) tablet nabumetone 750 mg tablet 750 mg PO 20 Edema 07/26/21 08/01/21 Allergies Allergy/AdvReac Type Severity Reaction Status Date / Time egg Allergy Anaphylaxis Verified 08/01/21 11:39 peanut Allergy Anaphylaxis Verified 08/01/21 11:39 silk sutures Allergy Unknown Uncoded 07/26/21 10:41 allergy reaction [facility] Disclaimer: The information contained in this section may have been update
[2022-08-13 15:44] LABS: Basophils # 0.1 K/mm3 (0-0.2); Basophils % 0.6 % (0.1-2.0); Chloride 100 mmol/L (98-107); Eosinophils # 0.2 K/mm3 (0.0-0.4); Eosinophils % 2.1 % (0.1-12.0); Hematocrit 41.7 % (37.0-47.0); Hemoglobin 13.5 g/dL (12.2-16.2); Lymphocytes % 35.5 % (10-50); Mean Corpuscular HGB Conc 32.3 g/dL (31.8-35.4); Mean Corpuscular Hemoglobin 28.8 pg (27.0-31.2); Monocytes # 0.9 K/mm3 (0.1-1.0); Monocytes % 7.6 % (1.7-9.3); Neutrophils # 6.1 K/mm3 (1.8-7.8); Neutrophils % 54.2 % (37.0-80.0); Platelet Count 405 K/mm3 (142-424); Potassium 4.3 mmoL/L (3.5-5.1); Red Blood Count 4.69 M/mm3 (4.20-5.40); Red Cell Distribution Width 13.7 % (11.5-17.5); Sodium 138 mmol/L (136-145); White Blood Count 11.2 K/mm3 (4.8-10.8)
[2022-08-13 15:46] LABS: Alanine Aminotransferase 36 U/L (12-78); Aspartate Amino Transferase 41 U/L (14-36); Blood Urea Nitrogen 16 mg/dl (7-17); Creatinine Clearance Estimated 162 mL/min (50-200); Estimated Glomerular Filt Rate 86 ml/min (>60); GFR (African American) 104 ML/MIN (>60)
[2022-08-13 15:47] LABS: Albumin Level 4.6 g/dl (3.5-5.0); Albumin/Globulin Ratio 1.5 (1.1-1.8); Alkaline Phosphatase 153 U/L (38-126); Anion Gap 14.3 mEq/L (5-15); Bilirubin,Total 1.7 mg/dl (0.2-1.3); Calcium 9.3 mg/dl (8.4-10.2); Carbon Dioxide 28 mmol/L (22.0-30.0); Glucose 107 mg/dl (74-100); Total Protein,Serum 7.6 g/dl (6.3-8.2)
[2022-08-13 15:49] LABS: INR 0.96 (0.9-1.1); Prothrombin Time 10.4 seconds (10.1-12.5)
[2022-08-13 16:07] LABS: D-Dimer 0.76 ug/mL (0.0-0.5)
[2022-08-13 16:08] LABS: Troponin I < 0.01 ng/ml (0.00-0.034)
--- NOTE | 2022-08-13 16:08 | PC.NURSE ---
rounded on pt; pt aware that we are waiting on imaging results at this time, call light within reach. no other needs at this time
--- NOTE | 2022-08-13 17:04 | CT_ITS ---
PROCEDURE INFORMATION: Exam: CTA Chest With Contrast Exam date and time: 08/13/2022 5:17 PM Age: 57 years old Clinical indication: Shortness of breath; Additional info: SOB TECHNIQUE: Imaging protocol: Computed tomographic angiography of the chest with contrast. 3D rendering (Not supervised by radiologist): MIP and/or 3D reconstructed images were created by the technologist. Radiation optimization: All CT scans at this facility use at least one of these dose optimization techniques: automated exposure control; mA and/or kV adjustment per patient size (includes targeted exams where dose is matched to clinical indication); or iterative reconstruction. Contrast material: ISO 370; Contrast volume: 75 ml; Contrast route: INTRAVENOUS (IV); REPORTING DATA: Count of CT and Cardiac NM exams in prior 12 months: This patient has received 0 known CTs and 0 known cardiac nuclear medicine studies in the 12 months prior to the current study. COMPARISON: CR XR CHEST 2V 08/13/2022 3:01 PM FINDINGS: Pulmonary arteries: Normal. No pulmonary emboli. Aorta: No aortic aneurysm. Intima cannot be evaluated due to the lack of contrast opacification in the aortic lumen. Lungs: Unremarkable. No consolidation. No masses. Pleural spaces: Unremarkable. No pneumothorax. No pleural effusion. Heart: Unremarkable. No cardiomegaly. No pericardial effusion. Coronary arteries: Small number of calcifications. Mediastinal space: No esophagus dilatation. Lymph nodes: Unremarkable. No enlarged lymph nodes. Gallbladder and bile ducts: Gallbladder is surgically absent. No biliary ductal dilatation. Stomach and bowel: Gastric surgery changes have no wall thickening, luminal dilatation, or adjacent fluid collections. Bones/joints: Unremarkable. No acute fracture. Soft tissues: No breast or chest wall masses. IMPRESSION: 1. No pulmonary emboli. No aortic aneurysm.No aortic aneurysm. Intima cannot be evaluated due to the lack of contrast opacification in the aortic lumen.. 2. No acute findings in the chest.
--- NOTE | 2022-08-13 17:59 | PC.NURSE ---
warm blanket given to pt, call light in reach
[2022-08-13 18:44] LABS: Troponin I < 0.01 ng/ml (0.00-0.034)
== END 2022-08-13 18:55 | disposition home or self-care (01) ==
PROVIDERS: Emergency Provider Emergency Medicine; PCP Nurse Practitioner Family
DX: R07.9 Chest pain, unspecified (principal); R68.84 Jaw pain; R11.0 Nausea
CPT/HCPCS: 36415; 71046; 71275; 80053; 84484; 85025; 85378; 85610; 85730; 93005; 96360; 99285; Q9967